=== PATIENT | male | born 1965 | race Caucasian/White ===

== ENCOUNTER 2017-05-05 11:42 | Emergency (ER) | payer OTHER ==
[~2017-05-05] VITALS: Ht 177.8 cm; Wt 81.7 kg
[~2017-05-05 11:42] MED LIST: NOHOMEMEDICATIONS
[2017-05-05 12:53] LABS: HEMATOCRIT 46.1 % (42.0-52.0); HEMOGLOBIN 15.7 gm/dL (14.0-18.0); MCH 33.9 pg (26.0-34.0); MCHC 34.1 g/dL (28.0-37.0); MCV 99.6 fL (80.0-100.0); MPV 8.1 fl. (7.2-11.1); RBC 4.63 mil/uL (4.50-6.00); RDW-CV 12.7 % (10.5-14.5)
[2017-05-05 13:01] LABS: CALCIUM 8.4 mg/dL (8.5-10.1); CREATININE 1.1 mg/dL (0.6-1.3); POTASSIUM 3.8 mmol/L (3.5-5.1)
[2017-05-05 13:06] LABS: ALBUMIN 4.1 g/dL (3.4-5.0); TOTAL BILIRUBIN 0.3 mg/dL (<0.1-1.0); TOTAL PROTEIN 7.3 g/dL (6.4-8.2)
[2017-05-05] MEDS ORDERED: IBUPROFEN 800800 M1 PO (15:19)
[2017-05-05] MEDS ORDERED: NORCO 5-325 TA1 EACH PO (15:19)
[2017-05-05 15:30] VITALS: BP 127/79
[2017-05-25] MEDS ORDERED: HYDROCODONE-AP1 EAC6 PO (08:39)
== END 2017-05-05 15:31 | disposition home or self-care (01) ==
LOC: M.ERS 11:42
PROVIDERS: Emergency Medicine Emergency Medical Services
DX: D17.24 Benign lipomatous neoplasm of skin and subcutaneous tissue of left leg (principal); F10.99 Alcohol use, unspecified with unspecified alcohol-induced disorder

== ENCOUNTER → 2017-05-25 | Day surgery (SDC) | payer OTHER ==
[~2017-05-25] MED LIST changes: +HYDROCODONE-AP1 EAC6 PO; +IBUPROFEN 800800 M1 PO; +NORCO 5-325 TA1 EACH PO
--- NOTE | 2017-05-30 10:06 | S ---
[place] [address] SURGICAL PATH RPT PROCEDURE Name: PETAR PATEL Room: [facility].#: [id number] Admission: 05/25/17 Date of : 69 Discharge: Report #: [id number] Path Case #: [id number] PATHOLOGY REPORT COLLECTION DATE: 05/25/2017 RECEIVED DATE: 05/26/2017 SUBMITTING PHYS: Dr. Yazan Chicas OTHER PHYS: Dr. Bethany Cruz SPECIMEN(S) RECEIVED: A.Left posterior thigh lipoma * * * * * * * * * * * * FINAL DIAGNOSIS: Left posterior thigh lipoma: - Lipoma and attached benign skeletal muscle. (NAZANIN:mml; 05/29/2017) PATHOLOGIST: Ryan Burch M.D. REPORT ELECTRONICALLY SIGNED BY: Ryan Burch M.D. DATE/TIME: 05/29/2017 15:55 * * * * * * * * * * * * GROSS PATHOLOGY: The specimen is received in scant amount of formalin labeled "Petar Patel, left posterior thigh lipoma". Received are multiple segments of bright yellow, partially encapsulated lobulated tissue with attached red-brown muscle measuring 27.2 x 17.5 x 5.5 cm in aggregate dimensions. Sectioning reveals bright yellow, lobulated cut surfaces throughout with no grossly distinct nodules, lesions, or evidence of degeneration. The specimen is submitted representatively in cassettes A1 through A3. (CAA; 05/26/2017) CLINICAL HISTORY: Left leg benign mass INITIAL CPT CODE(S): A; 24054 Professional services performed by [facility] at [facility] [address] [place] [address] Technical services performed by [facility] at [address] [place] [address], [facility] [address] [address]. [address] [place] [address] SURGICAL PATH RPT PROCEDURE Name: PETAR PATEL [facility] [id number] Admission: 05/25/17 Date of : 69 Discharge: Report #: [id number] Path Case #: [id number] [facility] [address] [address] PHONE: [phone] DIRECTOR: Edmundo Huerta M.D. * * * END OF REPORT * * *
--- NOTE | 2017-05-31 07:49 | OP ---
[facility] [address] [place] [address] OPERATIVE REPORT Name: PETAR PATEL Room: [facility]#: [id number] Admission: 05/25/17 Attend Phys: Yazan Chicas Discharge: Date of : 69 Report #: [id number] THIS REPORT FOR: //name// CC: Yazan Cruz DATE OF SERVICE: 05/25/2017 PREOPERATIVE DIAGNOSIS: Left posterior thigh benign mass, 30 cm. POSTOPERATIVE DIAGNOSIS: Left posterior thigh benign mass, 30 cm. OPERATION: 1. Excision of left thigh benign mass, 30 cm. 2. Intermediate closure, 15 cm. SURGEON: Yazan Chicas MD. ANESTHESIA: General. ESTIMATED BLOOD LOSS: Minimal. SPECIMEN: Left thigh lipoma. DESCRIPTION OF PROCEDURE: After informed consent was obtained, the patient was brought to the operating room and placed supine. SCDs were placed and working, preoperative antibiotics were administered, general anesthesia was induced. The left thigh was prepped and draped in the usual sterile fashion after the patient was placed in the right lateral decubitus position with all pressure points protected and an axillary roll. I made a 15 cm incision longitudinally over the palpable mass. Cautery dissection was made down through the subcutaneous tissue. This was superficial. The lipoma was well circumscribed. It did go down to the muscle, and I from the muscle by incising the areolar tissue with the cautery. The mass was fully dissected around and excised. There was good hemostasis achieved with the cautery. The area was irrigated and then two layered closure was performed with a 2-0 Vicryl for the deep layer in interrupted fashion and orly for the skin. Sterile dressings were applied. COMPLICATIONS: [place] [address] OPERATIVE REPORT Name: PETAR PATEL Room: [facility]#: [id number] Admission: 05/25/17 Attend Phys: Yazan Chicas Discharge: Date of : 69 Report #: [id number] DISPOSITION: The patient was taken to recovery in satisfactory condition. <ELECTRONICALLY SIGNED> By: Yazan Chicas MD 05/31/17 0749 [id number] Chicas MD /dea
== END | disposition home or self-care (01) ==
LOC: M.SUR 06:05
DX: D17.24 Benign lipomatous neoplasm of skin and subcutaneous tissue of left leg (principal); Z79.891 Long term (current) use of opiate analgesic

== ENCOUNTER 2017-06-02 18:41 | Emergency (ER) | payer OTHER ==
[~2017-06-02] VITALS: Ht 177.8 cm; Wt 83.9 kg
[2017-06-02 19:28] LABS: HEMOGLOBIN 13.8 gm/dL (14.0-18.0); MCH 34.3 pg (26.0-34.0); MCHC 34.4 g/dL (28.0-37.0); MCV 99.6 fL (80.0-100.0); MPV 8.5 fl. (7.2-11.1); RBC 4.02 mil/uL (4.50-6.00); RDW-CV 12.6 % (10.5-14.5); WBC 10.9 thou/uL (4.0-11.0)
[2017-06-02 19:55] VITALS: BP 133/87
== END 2017-06-02 19:59 | disposition home or self-care (01) ==
LOC: M.ERS 18:41
PROVIDERS: Physician Assistant
DX: L76.32 Postprocedural hematoma of skin and subcutaneous tissue following other procedure (principal); Y83.9 Surgical procedure, unspecified as the cause of abnormal reaction of the patient, or of later complication, without mention of misadventure at the time of the procedure; Y92.89 Other specified places as the place of occurrence of the external cause

== ENCOUNTER → 2018-04-24 | Outpatient (CLI) | payer OTHER | LOC: M.ULTRA 14:27 | DX: K76.0 Fatty (change of) liver, not elsewhere classified (principal); K82.0 Obstruction of gallbladder ==

== ENCOUNTER 2019-01-26 09:39 | Emergency (ER) | payer OTHER ==
[~2019-01-26] VITALS: Ht 177.8 cm; Wt 81.7 kg
[2019-01-26] MEDS ORDERED: PRILOSEC OTC20 MG PO (09:47)
[2019-01-26 10:04] LABS: ABSOLUTE BASOPHILS 0.1 thou/uL (0.0-0.2); ABSOLUTE EOSINOPHILS 0.1 thou/uL (0.0-0.7); ABSOLUTE LYMPHOCYTES 1.6 thou/uL (0.8-5.3); ABSOLUTE MONOCYTES 0.8 thou/uL (0.0-1.2); ABSOLUTE NEUTROPHILS 4.6 thou/uL (1.6-8.1); BASOPHILS 0.7 %; EOSINOPHILS 1.7 %; HEMOGLOBIN 16.1 gm/dL (14.0-18.0); LYMPHOCYTES 22.3 %; MCH 34.9 pg (26.0-34.0); MCHC 35.1 g/dL (28.0-37.0); MCV 99.4 fL (80.0-100.0); MPV 8.8 fl. (7.2-11.1); NUCLEATED RBCS 0 /100WBC; PLATELET COUNT* 265 thou/uL (150-400); POLYS 64.3 %; RBC 4.62 mil/uL (4.50-6.00); RDW-CV 12.7 % (10.5-14.5); WBC 7.2 thou/uL (4.0-11.0)
[2019-01-26 10:09] LABS: ANION GAP 13 mmol/L (7-16); BUN 14 mg/dL (7-18); CALCIUM 9.1 mg/dL (8.5-10.1); CHLORIDE 101 mmol/L (98-107); CO2 26 mmol/L (21-32); CREATININE 1.3 mg/dL (0.6-1.3); GLUCOSE 122 mg/dL (70-99); SODIUM 140 mmol/L (136-145)
[2019-01-26 10:16] LABS: APTT 24.7 Seconds (25.0-31.3); PROTIME 10.1 Seconds (9.20-11.50)
[2019-01-26 10:20] LABS: ALBUMIN 4.4 g/dL (3.4-5.0); ALKALINE PHOSPHATASE 45 U/L (46-116); NT-PRO BRAIN NAT PEPTIDE 7 pg/mL (<300); SGOT 29 U/L (15-37); SGPT 47 U/L (30-65); TOTAL BILIRUBIN 0.5 mg/dL (<0.1-1.0); TOTAL PROTEIN 7.8 g/dL (6.4-8.2); TROPONIN-I LEVEL <0.06 ng/mL (<0.06)
[2019-01-26 11:07] LABS: URINE BILIRUBIN NEGATIVE (Negative); URINE BLOOD NEGATIVE (Negative); URINE CLARITY CLEAR; URINE COLOR YELLOW; URINE GLUCOSE-RANDOM NEGATIVE (Negative); URINE KETONES NEGATIVE (Negative); URINE LEUKOCYTES-REFLEX NEGATIVE (Negative); URINE NITRITE-REFLEX NEGATIVE (Negative); URINE PROTEIN NEGATIVE (Negative); URINE UROBILINOGEN 0.2 E.U./dl (0.2-1.0)
[2019-01-26] MEDS ORDERED: ANTIVERT25 MG PO (11:15)
[2019-01-26 11:38] VITALS: BP 127/85
--- NOTE | 2019-01-27 12:16 | EKG ---
[place] [address] ELECTROCARDIOGRAM REPORT Name: PETAR PATEL [id number] Admission: 01/26/19 Attend Phys: Discharge: 01/26/19 Date of : 69 Report #: [id number] THIS REPORT FOR: //name// [facility] ED Test Date: 2019-01-26 Test Time: 09:44:50 Pat Name: PETAR PATEL Department: Room: Gender: M Relief Manager: [facility] : 1965 Requested By: Cliff Aiken Order Number: [id number] MD: Yash Jasso Measurements Intervals Lucan Rate: 110 P: 30 TN: 186 QRS: 43 QRSD: 77 T: 33 QT: 317 QTc: 429 Interpretive Statements Sinus tachycardia Compared to ECG 06/15/2014 19:39:18 No significant changes Electronically Signed On 01-27-2019 12:16:13 CDT by Yash Jasso [email or web address] <ELECTRONICALLY SIGNED> By: Yash Jasso MD, [facility] 01/27/19 1216 0944 0944 Yash Jasso MD, FACC /EPI
== END 2019-01-26 11:41 | disposition home or self-care (01) ==
LOC: M.ERS 09:39
PROVIDERS: Emergency Medicine Emergency Medical Services
DX: E86.0 Dehydration (principal)